=== PATIENT | male | born 1955 | race Caucasian/White ===

== ENCOUNTER 2016-08-09 11:28 | Emergency (ER) | payer OTHER ==
[~2016-08-09] VITALS: Ht 185.4 cm; Wt 109.1 kg
[2016-08-09] MEDS ORDERED: SERT50TA12 PO (11:42)
[2016-08-09] MEDS ORDERED: TAMS0.4C32 PO (11:42)
[2016-08-09] MEDS ORDERED: RABE20TA60 PO (11:42)
[2016-08-09] MEDS ORDERED: MELO-273 PO (11:42)
[2016-08-09] MEDS ORDERED: ASPIRIN 325 MG EC TABLET PO ONE (12:00)
[2016-08-09] MEDS ORDERED: NITROGLYCERIN 2% (1 GM=INCH) PACKET TP ONE (12:00)
[2016-08-09 12:10] LABS: BASOPHILS # (AUTO) 0.03 K/uL (0.00-0.20); BASOPHILS % (AUTO) 0.4 % (0.0-2.0); EOSINOPHILS # (AUTO) 0.19 K/uL (0.00-0.70); EOSINOPHILS % (AUTO) 2.65 % (1.0-6.0); HEMATOCRIT 48.7 % (41-53); HEMOGLOBIN 16.1 g/dL (13.5-17.5); LYMPHOCYTES % (AUTO) 13.5 % (22.0-44.0); MEAN CORPUSCULAR HGB CONC 33.1 G/dL (31.0-37.0); MEAN CORPUSCULAR VOLUME 88 fL (80-100); MONOCYTES # (AUTO) 0.7 K/uL (0.1-1.0); MONOCYTES % (AUTO) 9.6 % (2.0-9.0); NEUTROPHILS # (AUTO) 5.2 K/uL (1.8-7.7); NEUTROPHILS % (AUTO) 73.8 % (40.0-70.0); PLATELET COUNT (AUTO) 248 K/uL (150-450); RED BLOOD CELL COUNT(AUTO) 5.57 MIL/uL (4.50-5.90); RED CELL DISTRIBUTION WIDTH 13.9 % (11.5-14.5)
[2016-08-09] MEDS ORDERED: ONDANSETRON HCL 4 MG/2 ML VIAL IVP ONE (12:15)
[2016-08-09] MEDS ORDERED: HEPARIN SODIUM 25000 UNITS/D5W 250 ML IV PRN (12:15)
[2016-08-09] MEDS ORDERED: MORPHINE SULFATE 2 MG/ML SYRINGE IVP ONE (12:15)
[2016-08-09 12:23] LABS: ANION GAP 9 mmol/L (8-16); CALCIUM, TOTAL 8.9 mg/dL (8.8-10.5); CARBON DIOXIDE 28 mmol/L (22-29); CHLORIDE 104 mmol/L (98-107); GLOMERULAR FILTR. RATE CALC > 60 mL/min (>60); POTASSIUM 3.7 mmol/L (3.5-5.1); SODIUM SERUM 141 mmol/L (136-145); UREA NITROGEN, BLOOD 16 mg/dL (7-18)
[2016-08-09 12:24] LABS: B-TYPE NATRIURETIC PEPTIDE 71 pg/mL (0-100)
[2016-08-09 12:48] LABS: ALANINE AMINOTRANSFERASE 42 U/L (12-78); ALBUMIN 4.2 g/dL (3.4-5.0); ASPARTATE AMINOTRANSFERASE 46 U/L (15-37); BILIRUBIN,TOTAL 1.5 mg/dL (0.1-1.0); CREATINE KINASE MB 6.2 ng/mL (0-5); CREATINE KINASE, TOTAL 207 U/L (39-308); TOTAL PROTEIN, SERUM 7.7 g/dL (6.4-8.2)
[2016-08-09 13:11] VITALS: BP 150/93
== END 2016-08-09 13:16 | disposition short-term general hospital (02) ==
LOC: EMS 11:31
DX: I21.19 ST elevation (STEMI) myocardial infarction involving other coronary artery of inferior wall (principal); E78.00 Pure hypercholesterolemia, unspecified; K21.9 Gastro-esophageal reflux disease without esophagitis
CPT/HCPCS: 71010; 80053; 82550; 82553; 83880; 84484; 85025; 85610; 85730; 93005; 96365; 96375; 99291; J1644; J2270; J2405